=== PATIENT | female | born 1990 | race Caucasian/White ===

== ENCOUNTER 2022-02-16 07:32 | Emergency (ER) | payer SELFPAY ==
[2022-02-16 07:41] VITALS: BP 137/61; PULSE 105; RESP 20; TEMP 36.6; O2SAT 100; BMI 42.9
--- NOTE | 2022-02-16 07:49 | ED_ITS ---
HPI - General Adult General Chief complaint: Urogenital-Female Stated complaint: Severe kidney pain Time Seen by Provider: 02/16/22 07:35 Source: patient Mode of arrival: Family Vehicle History of Present Illness HPI narrative: Patient is a 32-year-old female here for evaluation of urinary frequency and hesitancy and left-sided kidney discomfort. Has also felt very clammy and fevers but has not had any objective fevers. No nausea or vomiting. Is having some abdominal cramping. No vaginal bleeding. No change in bowel habits. All of her symptoms started late last evening. She does not get frequent urinary tract infections although she states that yesterday while she was at work she did after hold her urine for an extended period of time. She did take some ibuprofen last night for her discomfort with only minimal if any improvement. Related Data Previous Rx's Medication Instructions Recorded hydrocodone 5 mg-acetaminophen 325 1 tab PO Q4-6H PRN #10 tab 02/16/22 mg tablet ondansetron 4 mg disintegrating 4 mg PO TID PRN #14 tab 02/16/22 tablet Allergies Allergy/AdvReac Type Severity Reaction Status Date / Time No Known Drug Allergies Allergy Verified 02/16/22 07:41 Review of Systems Gastrointestinal Gastrointestinal: Reports as per HPI and Reports system reviewed and no additional complaints, except as documented Genitourinary Genitourinary: Reports system reviewed and no additional complaints, except as documented and Reports as per HPI Musculoskeletal Musculoskeletal: Reports system reviewed and no additional complaints, except as documented and Reports as per HPI Integumentary/Breasts Skin/Breast: Reports system reviewed and no additional complaints, except as documented and Reports as per HPI Hematologic/Lymphatic On Anticoagulants: No Patient History Medical History Healthy adult Social History Smoking Status: Former smoker Smoking Status: Former smoker tobacco type: cigarettes alcohol intake frequency: 0-2 drinks per day Substance Use Type: does not use Exam Initial Vital Signs Initial Vital Signs: Vital Signs Temperature 97.9 F 02/16/22 07:41 Pulse Rate 105 H 02/16/22 07:41 Respiratory Rate 20 02/16/22 07:41 Blood Pressure 137/61 02/16/22 07:41 Pulse Oximetry 100 02/16/22 07:41 HENMT Head: normal to inspection and normocephalic Resp Effort & Inspection: normal respiratory effort Auscultation: clear to auscultation bilaterally Cardio Rate: regular rate Rhythm: regular rhythm GI Inspection: normal to inspection Back/Spine/Pelvis Back: CVA tenderness left Neuro General: patient alert and patient awake Extrem General: normal to inspection Course Orders Ordered: ED Orders 02/16/22 10:35 Basic Metabolic Panel Stat Discontinued Medications Ketorolac Tromethamine (Ketorolac 30 Mg/Ml Vial) 30 mg IV NOW ONE Stop: 02/16/22 09:13 Last Admin: 02/16/22 10:35 Dose: 30 mg Documented by: JENNA Ondansetron HCl (Ondansetron 4 Mg/2 Ml Inj) 4 mg IV NOW ONE Stop: 02/16/22 09:13 Last Admin: 02/16/22 10:35 Dose: 4 mg Documented by: JENNA Vital Signs Vital signs: Vital Signs - 8 hr 02/16/22 11:47 Temperature 98.2 F Pulse Rate 75 Respiratory Rate 16 Blood Pressure 140/95 H Pulse Oximetry 97 Medical Decision Making Lab Data Lab results reviewed: Yes I reviewed the patient's lab results. Result diagrams: 02/16/22 10:35 Labs: Lab Results 02/16/22 02/16/22 02/16/22 Range/Units 07:54 07:54 10:35 Sodium 139 (137-145) mmol/L Potassium 4.2 (3.4-5.1) mmol/L Chloride 104 (98-107) mmol/L Carbon Dioxide 24 (22-32) mmol/L BUN 16 (7-17) mg/dL Creatinine 1.36 H (0.52-1.04) mg/dL Estimated GFR 44.5 L (>60) mL/min BUN/Creatinine Ratio 11.8 (6-22) Glucose 117 H (70-100) mg/dL Calcium 9.1 (8.4-10.2) mg/dL Urine Color Yellow Urine Appearance Sl cloudy Urine pH 5.5 (4.5-8.0) Ur Specific Willis >=1.030 H (1.000-1.035) Urine Protein 1+ H (Negative) Urine Glucose (UA) Negative (Negative) g/dL Urine Ketones Negative (NEGATIVE) Urine Occult Blood Negative (Negative) Urine Nitrate Negative (Negative) Urine Bilirubin Negative (NEGATIVE) Urine Urobilinogen 0.2 (0.2) E.U./dL Ur Leukocyte Esterase Negative (NEGATIVE) Urine RBC None seen (0-5/HPF) Urine WBC None seen (0-5/HPF) Urine Bacteria Not Reportable Ur Culture Indicated? Culture not indicate Micro UA Comment Microscopic normal Urine Test Negative (Negative) Imaging Data CT scan - abdomen/pelvis: Radiologist's Impression: [address] [id number] [address] Scan Report Signed Patient: Denita Coffey MR#: [id number] : 1990 Acct:[id number] Age/Sex: 32 / F Date of Service: 02/16/22 Loc: ED Accession Number: [id number] ?? Procedure: CT kidney ureter bladder (KUB) Ordering Provider: Juanpablo Samson D.O. PROCEDURE:? CT KIDNEY URETER BLADDER (KUB) ? INDICATIONS:? Left flank pain eval for stone ? TECHNIQUE:? Axial sections were acquired from the lung bases to the pubic symphysis.? Coronal and sagittal reformats were performed.? For radiation dose reduction, the following was used: ?automated exposure control, adjustment of mA and/or kV according to patient size.? ? COMPARISON:? None. ? FINDINGS:? Image quality:? Excellent.? ? Lung bases:? Unremarkable.? ? Heart:? No significant findings. ? URINARY:? Approximately 2 millimeter left UVJ calculus (series 2, image 81).? Tiny nonobstructing left upper pole renal calculus measuring up to 1 millimeters (series 2, image 30).? Mild left hydroureteronephrosis and perinephric fat stranding.? No urinary tract calculus or hydroureteronephrosis on the right.? Urinary bladder is decompressed and normal. ? ABDOMEN: Liver:? Unremarkable.? ? Gallbladder:? Normal. Biliary ducts:? Nondilated.? Pancreas:? Normal. Spleen:? Normal size and appearance. Adrenal Glands:? No nodule or mass. ? Stomach and Bowel:? Stomach, small bowel loops, and colon are unremarkable.? Peritoneum:? No abnormal intraperitoneal fluid.? No free air.? ? Ventral Wall: ? No hernia.? Abdominal Nodes:? No enlarged retroperitoneal or mesenteric lymph nodes.? Vessels:? Aorta and inferior vena cava are normal in size.? ? PELVIS: Pelvic Organs:? Unremarkable.? ? Pelvic Nodes: Unremarkable. Miscellaneous: No inguinal hernias are seen. ? ? ? Bones:? Unremarkable. ? IMPRESSION:? ? Obstructing 2 millimeter left UVJ calculus producing mild left hydroureteronephrosis and mild left perinephric fat stranding.? ? ? Dictated by: Payam Kaba M.D. on 02/16/2022 at 8:57 ? ? Approved by: Payam Kaba M.D. on 02/16/2022 at 8:59? MDM Narrative Medical decision making narrative: No indication for urinary tract infection. CT scan shows left-sided distal ureterolithiasis. This does correspond with the symptoms she is having today. She does have a slightly higher creatinine and lower GFR than I would expect for someone her age without underlying kidney issues and I would have expected that this is secondary to her stone however patient is certainly does not have any indication for emergent urologic intervention. We will treat symptomatically. I suspect that her kidney function will improve when she passes the stone. Patient is nontoxic appearing. She was given strict return precautions and foll ow-up instructions. She expressed understanding and agreement. Discharge Plan Departure Patient Disposition: Home Clinical Impression: Renal colic on left side Instructions: DI for Kidney Stones Activity Restrictions/Additional Instructions: I recommend that you continue to stay hydrated like we discussed. Take the medications as directed. Return to the emergency department for any new or worsening symptoms. Prescriptions: New ondansetron 4 mg tablet,disintegrating 4 mg PO TID PRN (Reason: nausea and vomiting) Qty: 14 0RF hydrocodone-acetaminophen 5-325 mg tablet 1 tab PO Q4-6H PRN (Reason: pain) Qty: 10 0RF
[2022-02-16 07:50] VITALS: O2SAT 99
[2022-02-16 07:51] VITALS: BP 141/95; PULSE 83; O2SAT 98
[2022-02-16 08:01] LABS: Appearance Urine UA SL CLOUDY; Bilirubin Urine UA NEGATIVE (NEGATIVE); Color Urine UA YELLOW; Glucose Urine UA NEGATIVE (Negative); Ketones Urine UA NEGATIVE (NEGATIVE); Leukocyte Esterase Urine UA NEGATIVE (NEGATIVE); Nitrite Urine UA NEGATIVE (Negative); Occult Blood Urine UA NEGATIVE (Negative); Protein Urine UA 1+ (Negative); Specific Gravity Urine UA >=1.030 (1.000-1.035); Urobilinogen Urine UA 0.2 E.U./dL (0.2)
[2022-02-16 08:05] LABS: Pregnancy Test Urine Negative (Negative); pH Urine UA 5.5 (4.5-8.0)
[2022-02-16 08:07] LABS: RBC Urine None Seen (0-5/HPF); Urine Comments Microscopic Normal; WBC Urine None Seen (0-5/HPF)
--- NOTE | 2022-02-16 08:18 | DI.CT.S_ITS ---
PROCEDURE: CT KIDNEY URETER BLADDER (KUB) INDICATIONS: Left flank pain eval for stone TECHNIQUE: Axial sections were acquired from the lung bases to the pubic symphysis. Coronal and sagittal reformats were performed. For radiation dose reduction, the following was used: automated exposure control, adjustment of mA and/or kV according to patient size. COMPARISON: None. FINDINGS: Image quality: Excellent. Lung bases: Unremarkable. Heart: No significant findings. URINARY: Approximately 2 millimeter left UVJ calculus (series 2, image 81). Tiny nonobstructing left upper pole renal calculus measuring up to 1 millimeters (series 2, image 30). Mild left hydroureteronephrosis and perinephric fat stranding. No urinary tract calculus or hydroureteronephrosis on the right. Urinary bladder is decompressed and normal. ABDOMEN: Liver: Unremarkable. Gallbladder: Normal. Biliary ducts: Nondilated. Pancreas: Normal. Spleen: Normal size and appearance. Adrenal Glands: No nodule or mass. Stomach and Bowel: Stomach, small bowel loops, and colon are unremarkable. Peritoneum: No abnormal intraperitoneal fluid. No free air. Ventral Wall: No hernia. Abdominal Nodes: No enlarged retroperitoneal or mesenteric lymph nodes. Vessels: Aorta and inferior vena cava are normal in size. PELVIS: Pelvic Organs: Unremarkable. Pelvic Nodes: Unremarkable. Miscellaneous: No inguinal hernias are seen. Bones: Unremarkable. IMPRESSION: Obstructing 2 millimeter left UVJ calculus producing mild left hydroureteronephrosis and mild left perinephric fat stranding. Dictated by: Payam Kaba M.D. on 02/16/2022 at 8:57 Approved by: Payam Kaba M.D. on 02/16/2022 at 8:59
[2022-02-16] MEDS: KETOROLAC 30 MG/ML VIAL IV (10:35)
[2022-02-16] MEDS: ONDANSETRON 4 MG/2 ML INJ IV (10:35)
[2022-02-16 10:53] LABS: Chloride 104 mmol/L (98-107); HEMOLYSIS < 15 (0-50)
[2022-02-16 10:56] LABS: BUN Creatinine Ratio 11.8 (6-22); Blood Urea Nitrogen 16 mg/dL (7-17); Calcium 9.1 mg/dL (8.4-10.2); Carbon Dioxide 24 mmol/L (22-32); Estimated Glomerular Filt Rate 44.5 mL/min (>60); Glucose 117 mg/dL (70-100); Potassium 4.2 mmol/L (3.4-5.1); Sodium 139 mmol/L (137-145)
[2022-02-16 11:47] VITALS: BP 140/95; PULSE 75; RESP 16; TEMP 36.8; O2SAT 97
== END 2022-02-16 11:47 | disposition home or self-care (01) ==
PROVIDERS: Emergency Provider Emergency Medicine
DX: N13.2 Hydronephrosis with renal and ureteral calculous obstruction (principal); Z87.891 Personal history of nicotine dependence
CPT/HCPCS: 36415; 74176; 80048; 81001; 81025; 87086; 96374; 96375; 99284; J1885; J2405